=== PATIENT | male | born 1980 | race African-American/Black ===

== ENCOUNTER 2020-06-07 13:43 | Emergency (ER) | payer BC ==
[~2020-06-07] VITALS: Ht 177.8 cm; Wt 116.1 kg
[~2020-06-07 13:43] MED LIST: ACCUNEB0.63 MG/3 IH; FLEXERIL PO; FLOVENT HFA 2220 MCG; PREDNISONE 20 M20 M1 PO; PREDNISONE50 MG PO; PROVENTIL; PROVENTIL HFA6.7 G1 INH
--- NOTE | 2020-06-07 14:33 | EKG ---
[address] [address] ELECTROCARDIOGRAM REPORT Name: JAMESKONRAD MIGUEL ÁNGEL Room #: PRE [facility]..#: [id number] Admission: Attend Phys: Discharge: Date of : 84 Report #: [id number] [facility] ED Test Date: 2020-06-07 Test Time: 13:51:02 Pat Name: KONRAD RAMIREZ Department: Room: Gender: Engineer [employer]: jigna : 1980 Requested By: Angel Major Order Number: [id number] MD: Juan Sanchez Measurements Intervals [place] Rate: 75 P: 72 [place]: 137 QRS: 56 QRSD: 90 T: 54 QT: 371 QTc: 415 Interpretive Statements Sinus rhythm Compared to ECG 01/24/2012 01:27:52 Sinus tachycardia no longer present Electronically Signed On 06-07-2020 14:33:32 [employer] by Juan Sanchez [email or web address] <ELECTRONICALLY SIGNED> By: Juan Sanchez MD, [facility] 06/07/20 1433 [id number] [id number] Juan Sanchez MD, FACC /EPI
[2020-06-07 14:36] LABS: ABSOLUTE NEUTROPHILS 1.8 thou/uL (1.4-8.2); BASOPHILS 1.3 % (0.0-2.0); EOSINOPHILS 5.2 % (0.0-3.0); LYMPHOCYTES 44.9 % (24.0-44.0); MCHC 33.4 g/dL (28.0-37.0); MCV 83.8 fL (80.0-100.0); MONOCYTES 11.1 % (1.0-8.0); PLATELET COUNT 312 thou/uL (150-400); POLYS 37.5 % (36.0-66.0); RBC 5.72 mil/uL (4.50-6.00); WBC 4.9 thou/uL (4.0-11.0)
[2020-06-07 14:45] LABS: ANION GAP 8 mmol/L (7-16); BUN 9 mg/dL (7-18); CALCIUM 9.5 mg/dL (8.5-10.1); CHLORIDE 101 mmol/L (98-107); CO2 32 mmol/L (21-32); CREATININE 1.2 mg/dL (0.7-1.3); GLUCOSE 81 mg/dL (74-106); POTASSIUM 3.7 mmol/L (3.5-5.1); SODIUM 141 mmol/L (136-145)
[2020-06-07 14:56] LABS: LIPASE 171 U/L (73-393); SGOT 24 U/L (15-37); SGPT 43 U/L (16-63); TOTAL BILIRUBIN 0.9 mg/dL (0.2-1.0); TOTAL PROTEIN 7.8 g/dL (6.4-8.2); TROPONIN-I <0.06 ng/mL (<0.06)
[2020-06-07] MEDS ORDERED: NEXIUM20 MG PO (17:13)
[2020-06-07 19:36] VITALS: BP 138/75
== END 2020-06-07 18:14 | disposition home or self-care (01) ==
LOC: ER 13:43
PROVIDERS: Emergency Medicine
DX: R07.89 Other chest pain (principal); R06.02 Shortness of breath; R11.0 Nausea; R10.13 Epigastric pain; J45.909 Unspecified asthma, uncomplicated; Z79.899 Other long term (current) drug therapy; Z91.013 Allergy to seafood